=== PATIENT | female | born 1980 | race Caucasian/White ===

== ENCOUNTER 2017-10-08 08:11 | Day surgery (SDC) | payer BC ==
[~2017-10-08] VITALS: Ht 160 cm; Wt 121.4 kg
[~2017-10-08 08:11] MED LIST: TRAM50 PO
[2017-10-08] MEDS ORDERED: METCAR500 (08:41)
[2017-10-08] MEDS ORDERED: Neurontin 300300 MG (08:42)
[2017-10-08] MEDS ORDERED: CYAN1000I (08:42)
== END 2017-10-08 10:24 | disposition home or self-care (01) ==
LOC: ORSCSDS 08:11
PROVIDERS: Internal Medicine Gastroenterology
PROC: 0DB68ZX Excision of Stomach, Via Natural or Artificial Opening Endoscopic, Diagnostic (ICD-10-PCS; principal; 2017-10-08 09:30)
PROC: 0DJD8ZZ Inspection of Lower Intestinal Tract, Via Natural or Artificial Opening Endoscopic (ICD-10-PCS; principal; 2017-10-08 09:30)
DX: D50.9 Iron deficiency anemia, unspecified (principal); K29.70 Gastritis, unspecified, without bleeding; K44.9 Diaphragmatic hernia without obstruction or gangrene; K64.8 Other hemorrhoids; Z98.84 Bariatric surgery status; E66.01 Morbid (severe) obesity due to excess calories; Z68.42 Body mass index [BMI] 45.0-49.9, adult; Z79.899 Other long term (current) drug therapy
CPT/HCPCS: 88305; 88342; J7120

== ENCOUNTER 2020-07-13 23:20 | Emergency (ER) | payer OTHER, BC ==
[~2020-07-13 23:20] MED LIST changes: +CYAN1000I; +METCAR500; +Neurontin 300300 MG
== END 2020-07-14 00:13 | disposition left against medical advice (07) ==
LOC: ER 23:20
DX: Z53.21 Procedure and treatment not carried out due to patient leaving prior to being seen by health care provider (principal)

== ENCOUNTER 2020-09-05 13:26 | Observation (INO) | payer BC ==
[~2020-09-05] VITALS: Ht 160 cm; Wt 91.0 kg
[2020-09-05 14:38] LABS: BASOPHILS ABSOLUTE AUTO 0.02 K/mm3 (0.00-0.23); BASOPHILS PERCENT AUTO 0 % (0-2); EOSINOPHILS ABSOLUTE AUTO 0.07 K/mm3 (0.00-0.68); EOSINOPHILS PERCENT AUTO 1 % (0-6); Hematocrit 41.2 % (33.0-51.0); Hemoglobin 13.4 g/dL (11.5-16.0); IMMATURE GRAN ABSOLUTE AUTO 0.06 K/mm3 (0.00-0.10); IMMATURE GRAN PERCENT AUTO 1 % (0-1); LYMPHOCYTES ABSOLUTE AUTO 1.39 K/mm3 (0.84-5.20); LYMPHOCYTES PERCENT AUTO 13 % (21-46); MONOCYTES ABSOLUTE AUTO 1.31 K/mm3 (0.16-1.47); MONOCYTES PERCENT AUTO 12 % (4-13); Mean Corpuscular HGB 28.5 pg (26.0-34.0); Mean Corpuscular HGB Conc 32.5 g/dL (31.5-36.5); Mean Corpuscular Volume 88 fL (80-100); NEUTROPHILS ABSOLUTE AUTO 7.79 K/mm3 (1.96-9.15); NEUTROPHILS PERCENT AUTO 73 % (41-73); Platelet Count 312 K/mm3 (150-400); RDW Coefficient Variation 13.4 % (11.7-14.2); RDW Standard Deviation 43.2 fL (35.1-46.3); Red Blood Cell Count 4.71 M/mm3 (3.80-5.20); White Blood Cell Count 10.64 K/mm3 (4.00-11.30)
[2020-09-05 14:47] LABS: Influenza A, PCR NEGATIVE (NEGATIVE); Influenza B, PCR NEGATIVE (NEGATIVE); Resp Syncytial Virus, PCR NEGATIVE (NEGATIVE); SARS-Cov-2 (COVID-19) PCR, MMC NEGATIVE (NEGATIVE)
[2020-09-05 15:03] LABS: Alanine Aminotransfer (ALT/SGP 23 U/L (12-78); Albumin, Blood 3.6 g/dL (3.4-5.0); Albumin/Globulin Ratio 0.9 (0.8-1.8); Alk Phos 62 U/L (50-136); Anion Gap 7 mmol/L (6-16); Aspartate Aminotrans (AST/SGOT 19 U/L (12-37); Bilirubin, Total 0.4 mg/dL (0.1-1.0); Blood Urea Nitrogen 11 mg/dL (8-24); Bun/Creatinine Ratio 18.9 (12.0-20.0); CO2, Blood 26 mmol/L (21-32); Calcium, Blood 8.5 mg/dL (8.5-10.1); Chloride, Blood 105 mmol/L (98-108); Creatinine, Blood 0.58 mg/dL (0.40-1.00); Globulin, Blood 4.2 g/dL (2.2-4.0); Glomerular Filtration Rate >60 (60-); Glucose, Blood 87 mg/dL (70-99); Potassium, Blood 3.7 mmol/L (3.5-5.5); Sodium, Blood 138 mmol/L (136-145); Total Protein, Blood 7.8 g/dL (6.4-8.2); Troponin I 0.484 ng/mL (0.000-0.040)
[2020-09-05] MEDS ORDERED: TRAM50 PO (15:35)
[2020-09-05] MEDS ORDERED: ZALE10 PO (15:35)
[2020-09-05] MEDS ORDERED: VYVANSE40 MG PO (15:35)
[2020-09-05] MEDS ORDERED: Lithium Carbon300 MG PO (15:36)
[2020-09-05] MEDS ORDERED: Methocarbamol750 MG PO (15:37)
[2020-09-05] MEDS ORDERED: CYAN1000I IM (15:38)
[2020-09-05] MEDS ORDERED: ZOLPIDEM TARTRA10 MG PO (15:38)
[2020-09-05] MEDS ORDERED: THERA-D2000 UNIT PO (17:42)
[2020-09-05] MEDS ORDERED: TOCO1000 (17:42)
--- NOTE | 2020-09-05 18:35 | NUR ---
ADMISSION PT ARRIVED TO PCU ADMITTED FOR INCREASED SOB, FEVER AND ELEVATED TROP. PT HAS SLIGHTLY ELEVATED TEMP, 100.7 OTHERWISE VS ARE STABLE, PT ON RA. RHYTHM IS SR/ST. COVID AND FLU TESTS RETURNED NEGATIVE. PT RECEIVED A COVID VACCINE ON 08/17/20 THE LETY AND LETY VACCINE. 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 PT WILL BE NPO AT MIDNIGHT FOR CARDIOLOGY CONSULT IN THE AM. PT IS INDEPENDENT IN THE ROOM AND IS RESTING IN BED AT THIS TIME
[2020-09-05 19:08] LABS: International Normalized Ratio 0.99; Prothrombin Time Results 10.7 Sec (9.7-11.5)
--- NOTE | 2020-09-05 20:10 | NUR ---
ASSUMED CARE RECEIVED BEDSIDE REPORT FROM LOUISA SCHUMACHER; PT A&O X 4, SPOUSE AT BEDSIDE; PT TEARFUL AND ANXIOUS; VSS; CURRENTLY DENIES CHEST PAIN; CONCERNED W/ HOME MEDS AND PHARMACY REGARDING [facility] AND [facility]; NOTIFIED AND HE GAVE ORDERS TO ALLOW PT TO MANAGE HOME MED DOSAGE; PT AGREED TO ACCEPT RESPOSIBILITY AND RISKS DISCUSSED W/ PT; VERIFIED W/ SENIOR REVENUE ACCOUNTANTLOUISA SUAREZ TO ALLOW PT TO HAVE HOME MEDS AT BEDSIDE; O2 SATS >93 ON RA; BELONGINGS AND CALL LIGHT IN REACH; BED IN LOWEST POSITION.
--- NOTE | 2020-09-06 06:34 | NUR ---
SHIFT SUMMARY PT A&O X 4; PLEASANT & COMPLIANT W/ CARE; DENIES CHEST PAIN; VSS, BP SOFT AT TIMES; NSR NOTED ON TELE; HEP GTT @ 13U/KG/HR; O2 SATS >93 ON RA, EXPRESSES SLIGHT SOB AT TIMES; SLEPT A COUPLE OF HOURS; CALL LIGHT IN REACH; BED IN LOWEST POSITION; WILL CONTINUE TO MONITOR CLOSELY UNTIL HAND OFF TO DAY SHIFT RN.
[2020-09-06 07:11] LABS: BASOPHILS ABSOLUTE AUTO 0.04 K/mm3 (0.00-0.23); BASOPHILS PERCENT AUTO 0 % (0-2); EOSINOPHILS ABSOLUTE AUTO 0.05 K/mm3 (0.00-0.68); EOSINOPHILS PERCENT AUTO 1 % (0-6); Hematocrit 37.2 % (33.0-51.0); Hemoglobin 11.9 g/dL (11.5-16.0); IMMATURE GRAN ABSOLUTE AUTO 0.07 K/mm3 (0.00-0.10); IMMATURE GRAN PERCENT AUTO 1 % (0-1); LYMPHOCYTES ABSOLUTE AUTO 1.53 K/mm3 (0.84-5.20); LYMPHOCYTES PERCENT AUTO 17 % (21-46); MONOCYTES ABSOLUTE AUTO 1.04 K/mm3 (0.16-1.47); MONOCYTES PERCENT AUTO 12 % (4-13); Mean Corpuscular HGB 27.9 pg (26.0-34.0); Mean Corpuscular Volume 87 fL (80-100); Mean Platelet Volume 10.5 fL (9.1-12.4); NEUTROPHILS ABSOLUTE AUTO 6.19 K/mm3 (1.96-9.15); NEUTROPHILS PERCENT AUTO 69 % (41-73); Platelet Count 329 K/mm3 (150-400); RDW Coefficient Variation 13.5 % (11.7-14.2); RDW Standard Deviation 43.4 fL (35.1-46.3); Red Blood Cell Count 4.26 M/mm3 (3.80-5.20); White Blood Cell Count 8.92 K/mm3 (4.00-11.30)
[2020-09-06 07:30] LABS: Anion Gap 8 mmol/L (6-16); Blood Urea Nitrogen 8 mg/dL (8-24); Bun/Creatinine Ratio 14.5 (12.0-20.0); CHOL/HDL RATIO 2.3; CO2, Blood 24 mmol/L (21-32); Calcium, Blood 8.7 mg/dL (8.5-10.1); Chloride, Blood 107 mmol/L (98-108); Cholesterol 148 mg/dL (50-200); Creatinine, Blood 0.55 mg/dL (0.40-1.00); Glomerular Filtration Rate >60 (60-); Glucose, Blood 86 mg/dL (70-99); HDL Cholesterol 64 mg/dL (>39); Low Density Lipoprotein Chol 65 mg/dL (0-110); Potassium, Blood 3.7 mmol/L (3.5-5.5); Sodium, Blood 139 mmol/L (136-145); Triglycerides 97 mg/dL (30-160); Very Low Density Lipoprot Chol 19 mg/dL (6-32)
--- NOTE | 2020-09-06 09:00 | NUR ---
PT ALERT AND ORIENTED X4. ON ROOM AIR SATING ABOVE 94%. VITAL SIGNS STABLE. TELE SHOWING SINUS WITH HR 80-90'S. DENIES CHEST PAIN/PRSSURE AT THIS TIME. WHEN MOVING IN BED PT STATES SHE BECOMES SOB AND STARTS TO FEEL PALPITATIONS THAT SHE DESCRIBED HER HEART RACING. JVD NOTED PATIENT LAYS IN BED. NEURO WNL, LUNGS SOUNDING CLEAR. HX CHRONIC BACK PAIN. HEPARIN DRIP INFUSING. VITAL SIGNS STABLE. DR. KUHN IN TO SEE PATIENT THIS AM. PLAN FOR ANGIO TODAY. WILL CONTINUE TO MONITOR.
--- NOTE | 2020-09-06 10:58 | NUR ---
PT TO [facility] FOR [facility]
--- NOTE | 2020-09-06 12:38 | NUR ---
PT RETURNED FROM [facility], A&O X 4, TR BAND IN PLACE WITH 12ML OF AIR TO RIGHT WRIST, NO BLEEDING OR HEMATOMA NOTED. TR BAND WAS PLACED 1 HR AGO, 2MLS OF AIR REMOVED AT THIS TIME, NO BLEEDING OR HEMATOMA NOTED. VITAL SIGNS STABLE, SEE VITAL SIGN DOCUMENTATION. BEDSIDE REPORT GIVEN BY [facility] RN TO THIS RN. PT IS RESTING COMFORTABLY AT THIS TIME, NO NEEDS IDENTIFIED AT THIS TIME, CALL LIGHT IN REACH.
[2020-09-06] MEDS ORDERED: Acetaminophen325 M1 PO (15:09)
[2020-09-06] MEDS ORDERED: ASPI81CH PO (15:09)
[2020-09-06] MEDS ORDERED: METO25 PO (15:10)
--- NOTE | 2020-09-06 15:50 | NUR ---
DISCHARGE: PT ALERT AND ORIENTD X4. ON ROOM AIR, SATING ABOV 95%. TELE SHOWING SINUS. DENIES CHEST PAIN/PRESSURE. TR BAND REMOVED PER PROTOCOL AND WNL. TEGARDERM APPLIED AND POST ANGIO RADIAL SITE INSTRUCTIONS REVIEWED AND QUESTIONS ANSWERED. NO SIGNS OF BLEEDING OR HEMATOMA. DISCHARGE INSTRUCTIONS REVIEWED. 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 PATIENT TO CAR VIA WHEELCHAIR WITH BELONGINGS AND RIGHT ARM BOARD IN PLACE.
== END 2020-09-06 16:48 | disposition home or self-care (01) ==
LOC: ER 13:26 → PCU 13:27
PROVIDERS: Physician Assistant; ADMIT Internal Medicine
DX: I27.20 Pulmonary hypertension, unspecified (principal); I51.7 Cardiomegaly; I25.3 Aneurysm of heart; Q21.1 Atrial septal defect; R79.89 Other specified abnormal findings of blood chemistry; E66.01 Morbid (severe) obesity due to excess calories; K95.89 Other complications of other bariatric procedure; K91.2 Postsurgical malabsorption, not elsewhere classified; D63.8 Anemia in other chronic diseases classified elsewhere; Y83.8 Other surgical procedures as the cause of abnormal reaction of the patient, or of later complication, without mention of misadventure at the time of the procedure; Z98.84 Bariatric surgery status; Z68.36 Body mass index [BMI] 36.0-36.9, adult; Z87.891 Personal history of nicotine dependence; F39 Unspecified mood [affective] disorder; F90.9 Attention-deficit hyperactivity disorder, unspecified type; G89.29 Other chronic pain; M54.9 Dorsalgia, unspecified; G47.00 Insomnia, unspecified; Z88.6 Allergy status to analgesic agent; Z88.5 Allergy status to narcotic agent; Z20.822 Contact with and (suspected) exposure to COVID-19
CPT/HCPCS: 0241U; 36415; 71046; 71260; 76937; 80048; 80053; 80061; 83880; 84145; 84484; 85025; 85379; 85610; 85651; 85730; 86140; 93005; 93010; 93246; 93306; 93312; 93325; 93458; 99285-25; A9270; A9270-GY; C1769; C1894; J1644; J2250; J3010; J7030; J7050; Q9967

== ENCOUNTER 2020-10-28 06:05 | Day surgery (SDC) | payer BC ==
[~2020-10-28] VITALS: Ht 160 cm; Wt 95.7 kg
[~2020-10-28 06:05] MED LIST changes: +ASPI81CH PO; +Acetaminophen325 M1 PO; +CYAN1000I IM; +Lithium Carbon300 MG PO; +METO25 PO; +Methocarbamol750 MG PO; +THERA-D2000 UNIT PO; +TOCO1000; +VYVANSE40 MG PO; +ZALE10 PO; +ZOLPIDEM TARTRA10 MG PO
--- NOTE | 2020-10-28 08:05 | NUR ---
PT RETURNED BACK TO RECOVERY ROOM IN [facility]. RIGHT AC VENOUS SITE SOFT NON-TENDER WITH NO HEMATOMA, NO BLEEDING AND INTACT DRESSING. PT DENIES CHEST PAIN. CALL LIGHT IN REACH. PT DRINKING COFFEE/EATING BREAKFAST.
--- NOTE | 2020-10-28 08:35 | NUR ---
DISCHARGE INSTRUCTIONS REVIEWED AND ALL QUESTIONS ANSWERED.
--- NOTE | 2020-10-28 08:57 | NUR ---
20 G IV REMOVED FROM LEFT AC WITH INTACT CANNULA. DR KUHN IN ROOM TO SEE PT. PT AMBULATED OUT TO GO HOME.
== END 2020-10-28 09:00 | disposition home or self-care (01) ==
LOC: ORSCMMR 06:05 → MHTC 06:05
DX: Q21.1 Atrial septal defect (principal); I27.20 Pulmonary hypertension, unspecified; I10 Essential (primary) hypertension; E66.01 Morbid (severe) obesity due to excess calories; I44.1 Atrioventricular block, second degree; I47.1 Supraventricular tachycardia; G47.00 Insomnia, unspecified; F90.9 Attention-deficit hyperactivity disorder, unspecified type; F39 Unspecified mood [affective] disorder; Z98.84 Bariatric surgery status; Z68.37 Body mass index [BMI] 37.0-37.9, adult
CPT/HCPCS: 93451; 99152; C1769; J7030; Q9967

== ENCOUNTER → 2022-05-01 | Outpatient (CLI) | payer BC | END | disposition home or self-care (01) | LOC: LAB 12:20 → LAB SHORT 12:20 | DX: L08.9 Local infection of the skin and subcutaneous tissue, unspecified (principal) | CPT/HCPCS: 87070; 87075; 87076; 87205 ==

== ENCOUNTER → 2023-10-27 | Outpatient (CLI) | payer BC ==
[~2023-10-27] MED LIST changes: +QUVIVIQ25 MG PO
[2023-11-10 14:01] LABS: HPV GENOTYPE 16 BY PCR Negative; HPV GENOTYPE 18 BY PCR Negative; HPV SOURCE Cervical; HPV, OTHER HIGH RISK BY PCR Negative
== END ==
LOC: LAB SHORT 14:30 → LAB 14:30 → LAB SHORT 10-28 14:33
PROVIDERS: Nurse Practitioner Family
DX: Z00.00 Encounter for general adult medical examination without abnormal findings (principal); Z12.4 Encounter for screening for malignant neoplasm of cervix; Z11.51 Encounter for screening for human papillomavirus (HPV)
CPT/HCPCS: 87624; 88142